=== PATIENT | female | born 1960 | race Caucasian/White ===

== ENCOUNTER → 2024-01-03 12:50 | Outpatient (CLI) | payer MEDICARE, SELFPAY ==
--- NOTE | 2024-01-03 12:55 | DI.RAD.S_ITS ---
PROCEDURE: XR CHEST 2V INDICATIONS: Cough, dyspnea, reports HX nodule TECHNIQUE: 2 views of the chest were acquired. COMPARISON: None. FINDINGS: Surgical changes and devices: None. Lungs and pleura: Lungs are clear. No pleural effusions or pneumothorax. Mediastinum: Mediastinal contours are normal. Heart size is normal. Bones and chest wall: No suspicious bony abnormalities. Soft tissues appear unremarkable. IMPRESSION: No acute cardiopulmonary abnormality is seen. Dictated by: Martine Fried M.D. on 01/03/2024 at 13:48 Approved by: Martine Fried M.D. on 01/03/2024 at 13:49
== END ==
LOC: RAD 12:52
PROVIDERS: PCP Nurse Practitioner Family; Referring Provider Physician Assistant Surgical; Visit Provider Physician Assistant Surgical
DX: R05.9 Cough, unspecified (principal)
CPT/HCPCS: 71046

== ENCOUNTER → 2024-01-31 13:53 | Outpatient (CLI) | payer MEDICARE, SELFPAY | PROVIDERS: PCP Nurse Practitioner Family; Referring Provider Nurse Practitioner Family; Visit Provider Nurse Practitioner Family | DX: Z12.11 Encounter for screening for malignant neoplasm of colon (principal) | CPT/HCPCS: 82274 ==

== ENCOUNTER → 2024-03-07 08:02 | Outpatient (CLI) | payer MEDICARE, SELFPAY ==
[2024-03-07 10:23] LABS: BUN Creatinine Ratio 19.2 (6-22); Blood Urea Nitrogen 15 mg/dL (7-17); Carbon Dioxide 26 mmol/L (22-32); Chloride 105 mmol/L (98-107); Cholesterol 147 mg/dL (140-199); Estimated Glomerular Filt Rate > 60 mL/min (>60); Glucose 119 mg/dL (80-110); HDL Cholesterol 43 mg/dL (40-60); HEMOLYSIS < 15 (0-50); LDL Cholesterol Calculated 71 mg/dL (<100); Sodium 139 mmol/L (137-145); Triglycerides 163 mg/dL (35-150)
[2024-03-07 14:31] LABS: Hemoglobin A1C% w Est Avg Glu 5.8 % (4.0-6.0)
== END ==
PROVIDERS: PCP Nurse Practitioner Family; Referring Provider Nurse Practitioner Family; Visit Provider Nurse Practitioner Family
DX: E11.9 Type 2 diabetes mellitus without complications (principal); E78.5 Hyperlipidemia, unspecified; E78.2 Mixed hyperlipidemia; I10 Essential (primary) hypertension
CPT/HCPCS: 36415; 80048; 80061; 83036

== ENCOUNTER → 2024-03-17 06:31 | Outpatient (CLI) | payer MEDICARE, SELFPAY ==
[2024-03-17 07:58] LABS: Add Manual Diff / Slide Review NO; Basophils Absolute Auto 100 /uL (0-100); Basophils Percent Auto 0.9 % (0-2); Eosinophils Absolute Auto 100 /uL (0-450); Eosinophils Percent Auto 1.4 % (2-4); Hematocrit 46.4 % (36-46); Hemoglobin 15.6 g/dL (12.0-16.0); Lymphocytes Absolute Auto 2300 /uL (1100-4500); Lymphocytes Percent Auto 24.2 % (25-40); Mean Corpuscular HGB Conc 33.6 % (30-36); Mean Corpuscular Hemoglobin 29.8 PG (26-34); Mean Corpuscular Volume 88.7 fL (80-100); Monocytes Absolute Auto 600 /uL (0-900); Monocytes Percent Auto 6.6 % (3-14); Neutrophils Absolute Auto 6300 /uL (1500-7000); Neutrophils Percent Auto 66.9 % (50-75); Platelet Count 279 X10^3/uL (150-400); Red Blood Cell Count 5.24 X10^6/uL (4.0-5.2); Red Cell Distribution Width 13.6 % (11.6-14.8); White Blood Cell Count 9.4 X10^3/uL (4.5-11.0)
[2024-03-17 09:07] LABS: TSH w/ Reflex to FT4 1.98 uIU/mL (0.47-4.68)
== END ==
PROVIDERS: PCP Nurse Practitioner Family; Referring Provider Nurse Practitioner Family; Visit Provider Nurse Practitioner Family
DX: R53.83 Other fatigue (principal)
CPT/HCPCS: 36415; 84443; 85025

== ENCOUNTER → 2024-03-20 09:41 | Outpatient (CLI) | payer MEDICARE, SELFPAY ==
--- NOTE | 2024-03-20 09:42 | DI.RAD.S_ITS ---
PROCEDURE: XR DEXA AXIAL SKELETON INDICATIONS: screening of bone density and structures COMPARISON: None. FINDINGS: Lumbar Spine: Bone mineral density 0.768 g/cm2, T score -2.5, osteoporosis. Left Hip: Bone mineral density 0.755 g/cm2, T score -1.5, osteopenia. Left Femoral Neck: Bone mineral density 0.579 g/cm2, T score -2.4, osteopenia. Right Hip: Bone mineral density 0.739 g/cm2, T score -1.7, osteopenia. Right Femoral Neck: Bone mineral density is 0.568 g/cm2, T score -2.5, osteoporosis. Fracture Risk Calculation (when applicable): 10-year fracture risk of a major osteoporotic fracture 21% and of a hip fracture 2.5%. (T score greater or equal to -1.0 to: NORMAL) (T score from -1.1 to -2.4: OSTEOPENIA) (T score less than or equal to -2.5: OSTEOPOROSIS) IMPRESSION: Osteoporosis in the lumbar spine and right femoral neck. Follow-up guidelines as follows: Osteoporosis: Consider a repeat DEXA and Vertebral Fracture Assessment (VFA) exam in 2 years or sooner if medically necessary, to reassess this patient's status. Osteopenia: Consider a repeat DEXA in 2-3 years to reassess this patient's status, or if there is a new clinical indication. Normal: Consider a repeat DEXA in 5 years or sooner, or if there is a new clinical indication. All treatment decisions require clinical judgment and consideration of individual patient factors, including patient preferences, comorbidities, previous drug use, risk factors not captured in the FRAX model (e.g., frailty, falls, vitamin D deficiency, increased bone turnover, interval significant decline in bone density ) and possible under- or over-estimation of fracture risk by FRAX. In addition, the NOF Guide recommends that FDA-approved medical therapies be considered in postmenopausal women and men age >= 50 years with a: * Hip or vertebral (clinical or morphometric) fracture * T-score of <=-2.5 at the spine or hip * Ten-year fracture probability by FRAX of >= 3% for hip fracture or >=20% for major osteoporotic fracture. People with diagnosed cases of osteoporosis or at high risk for fracture should have regular bone mineral density tests. For patients eligible for Medicare, routine testing is allowed once every 2 years. The testing frequency can be increased to one year for patients who have rapidly progressing disease, those who are receiving or discontinuing medical therapy to restore bone mass, or have additional risk factors. Dictated by: Dajuan Dunham M.D. on 03/20/2024 at 11:10 Approved by: All Hassan M.D. on 04/02/2024 at 16:51
== END ==
LOC: RAD 09:41
PROVIDERS: PCP Nurse Practitioner Family; Referring Provider Nurse Practitioner Family; Visit Provider Nurse Practitioner Family
DX: M85.89 Other specified disorders of bone density and structure, multiple sites (principal); M81.0 Age-related osteoporosis without current pathological fracture
CPT/HCPCS: 77080

== ENCOUNTER → 2024-10-07 07:43 | Outpatient (CLI) | payer MEDICARE, SELFPAY ==
[2024-10-07 08:56] LABS: Add Manual Diff / Slide Review NO; Basophils Absolute Auto 100 /uL (0-100); Basophils Percent Auto 0.9 % (0-2); Eosinophils Absolute Auto 100 /uL (0-450); Eosinophils Percent Auto 1.4 % (2-4); Hematocrit 44.7 % (36-46); Lymphocytes Absolute Auto 2200 /uL (1100-4500); Lymphocytes Percent Auto 24.6 % (25-40); Mean Corpuscular HGB Conc 33.5 % (30-36); Mean Corpuscular Volume 89.5 fL (80-100); Monocytes Absolute Auto 700 /uL (0-900); Monocytes Percent Auto 7.3 % (3-14); Neutrophils Absolute Auto 5800 /uL (1500-7000); Neutrophils Percent Auto 65.8 % (50-75); Platelet Count 259 X10^3/uL (150-400); Red Blood Cell Count 4.99 X10^6/uL (4.0-5.2); White Blood Cell Count 8.9 X10^3/uL (4.5-11.0)
[2024-10-07 09:06] LABS: Hemoglobin A1C% w Est Avg Glu 6.2 % (4.0-6.0)
[2024-10-07 09:12] LABS: Alanine Aminotransferase 36 IU/L (<35); Albumin 4.1 g/dL (3.5-5.0); Albumin Globulin Ratio 1.3 (1.0-2.8); Alkaline Phosphatase 80 U/L (38-126); Aspartate Aminotransferase 34 IU/L (14-36); BUN Creatinine Ratio 25.4 (6-22); Bilirubin Total 1.8 mg/dL (0.2-1.3); Blood Urea Nitrogen 17 mg/dL (7-17); Calcium 9.1 mg/dL (8.4-10.2); Carbon Dioxide 26 mmol/L (22-32); Chloride 103 mmol/L (98-107); Cholesterol 166 mg/dL (140-199); Estimated Glomerular Filt Rate > 60 mL/min (>60); Globulin 3.2 g/dL (1.7-4.1); Glucose 177 mg/dL (80-110); HDL Cholesterol 40 mg/dL (40-60); HEMOLYSIS < 15 (0-50); LDL Cholesterol Calculated 96 mg/dL (<100); Sodium 137 mmol/L (137-145); Total Protein 7.3 g/dL (6.3-8.2); Triglycerides 150 mg/dL (35-150)
[2024-10-07 09:15] LABS: Creatinine Urine Random 277.53 mg/dL
[2024-10-07 09:29] LABS: Vitamin D 25 Hydroxy (D3) 51.2 ng/mL (30.0-100.0)
[2024-10-07 09:50] LABS: Microalbumin Urine Random 81.7 mg/dL (0-1.6)
[2024-10-07 10:01] LABS: Vitamin B12 344 pg/mL (239-931)
== END ==
PROVIDERS: PCP Nurse Practitioner Family; Referring Provider Nurse Practitioner Family; Visit Provider Nurse Practitioner Family
DX: N92.0 Excessive and frequent menstruation with regular cycle (principal); E11.9 Type 2 diabetes mellitus without complications; I10 Essential (primary) hypertension; M81.0 Age-related osteoporosis without current pathological fracture
CPT/HCPCS: 36415; 80053; 80061; 82043; 82306; 82570; 82607; 83036; 85025

== ENCOUNTER 2024-12-21 07:16 | Day surgery (SDC) | payer MEDICARE, SELFPAY ==
[2024-12-21 07:39] VITALS: BP 161/96; PULSE 138; RESP 20; TEMP 36.2; O2SAT 98
[2024-12-21] MEDS: LACTATED RINGERS 1,000 ML 42 ML IV (07:52)
[2024-12-21 08:09] VITALS: PULSE 102
[2024-12-21] MEDS: METOCLOPRAMIDE 10 MG/2 ML INJ IV (08:17)
--- NOTE | 2024-12-21 09:01 | PM.HP.IH.1 ---
History of Present Illness History of Present Illness Date Patient Seen: 12/21/24 Time Patient Seen: 09:02 Chief complaint: Colonoscopy Narrative: Parisa is a 64-year-old woman who presents for a colonoscopy due to a positive fit test. Her last colonoscopy was greater than 10 years ago. [facility] Medical History (Updated 10/04/24 @ 15:48 by Meenakshi Cloud, [facility]) Positive FIT (fecal immunochemical test) Eczema Hip arthritis Chronic cough (~2014) Abnormal chest xray (~2015) PTSD (post-traumatic stress disorder) Anxiety Shoulder pain Osteoporosis Fractures Chronic back pain Carpal tunnel syndrome Mumps Measles Chicken pox Cataracts, bilateral Ovarian cyst Heavy menstrual period Kidney stones Thyroid nodule Breast cancer (~2011) Hyperlipidemia Hypertension GERD (gastroesophageal reflux disease) Seasonal allergies Osteoarthritis Hip pain, left Diabetes mellitus (~2005) Surgical History (Updated 01/21/24 @ 20:26 by Anisha Kirby) Anesthesia History of carpal tunnel release History of section (~1975) History of lithotripsy History of cholecystectomy (~2012) Hx of breast implants, bilateral (~2012) History of bilateral mastectomy (~2011) History of breast surgery (~2011) Family History (Updated 01/21/24 @ 20:28 by Anisha Kirby) Father Cancer History of heart disease Diabetes mellitus Hyperlipidemia Hypertension Mother Hyperlipidemia Hypertension Stroke Brother Hyperlipidemia Hypertension Sister Hyperlipidemia Hypertension Grandfather Diabetes mellitus History of heart disease Grandmother History of heart disease Social History Smoking Status: Never smoker alcohol intake: never Meds Home Medications and Allergies Home Medications Medication Instructions Recorded Confirmed Type blood sugar diagnostic (OneTouch #100 ea 12/15/23 10/25/24 Rx Verio test strips) pen needle, diabetic 32 gauge x 12/15/23 10/25/24 History (BD Ultra-Fine Yahaira Pen Needle) flash glucose scanning reader #1 ea 09/06/24 10/25/24 Rx (FreeStyle Edgar 2 [place]) flash glucose sensor (FreeStyle #1 ea 09/06/24 10/25/24 Rx Edgar 2 Sensor kit) atorvastatin 10 mg tablet 10 mg PO DAILY #90 tabs 10/04/24 12/21/24 Rx losartan 25 mg tablet 25 mg PO DAILY #90 tabs 10/04/24 12/21/24 Rx metformin 500 mg tablet,extended 500 mg PO DAILY #90 tabs 10/04/24 12/21/24 Rx release 24 hr metoprolol tartrate 25 mg tablet 25 mg PO BID #180 tabs 10/04/24 12/21/24 Rx blood-glucose sensor (FreeStyle #1 ea 10/18/24 10/25/24 Rx Edgar 2 Plus Sensor device) bupropion HCl 150 mg 24 hr tablet, 150 mg PO DAILY #90 tabs 10/25/24 12/21/24 Rx extended release sodium,potassium,mag sulfates 17.5 See Rx Instructions PO .COMPLEX 11/09/24 Rx gram-3.13 gram-1.6 gram oral soln #354 mL (Suprep Bowel Prep Kit) Novolog Mix 70-30 FlexPen U-100 See Rx Instructions SUBCUT 11/20/24 12/21/24 Rx Insulin 100 unit/mL subcutaneous .COMPLEX #24 mL pen (insulin asp prt-insulin aspart) Allergies Allergy/AdvReac Type Severity Reaction Status Date / Time clindamycin Allergy Mild Rash Verified 12/21/24 07:37 fluphenazine [From Prolixin] Allergy ITCHING Verified 12/21/24 07:37 lisinopril AdvReac Mild Cough Verified 12/21/24 07:37 Exam Vital Signs (past 8 hours): - 12/21/24 07:39 12/21/24 08:09 Temperature 97.1 F L Pulse Rate 138 H 102 H Respiratory Rate 20 Blood Pressure 161/96 H Pulse Oximetry 98 Oxygen Delivery Method Room Air Oxygen Delivery Method Room Air Const General: No acute distress Assessment & Plan Assessment and plan (1) Positive FIT (fecal immunochemical test): Status: Acute Plan Colonoscopy Time-Based Coding :: [TOTAL MINUTES] spent with patient and on the chart (including review of chart, obtaining history, exam, reviewing outside data, placing orders, documenting exam and treatment plan, and counseling patient) on [DATE]. 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
[2024-12-21 09:25] VITALS: BP 86/46; PULSE 96; RESP 24; TEMP 36.8; O2SAT 94
[2024-12-21 09:30] VITALS: BP 96/61; PULSE 97; RESP 25; O2SAT 96
--- NOTE | 2024-12-21 09:30 | PM.OP.COLON ---
Operative Date/Time/Diagnoses Date of procedure: 12/21/24 Time of procedure: 09:30 Pre-op diagnosis: Positive fit test Post-op diagnosis: same Procedure & Clinicians Study performed: Colonoscopy Same procedure as scheduled: Yes Surgeon: Adan Serrato Procedure Notes Procedure in detail: Surgeon: Adan Serrato MD Anesthesia: Any Smith CRNA Procedure: The patient was brought to the endoscopy suite, placed in left lateral decubitus position. The patient was connected to monitoring devices. A time-out was performed. Sedation was administered. Once the patient was adequately sedated, a digital rectal exam was performed and was normal. The scope was then inserted and advanced to the cecum where the appendiceal orifice was identified and photographed. The scope was then slowly withdrawn over greater than 6 minutes. The mucosa was thoroughly inspected. No polyps or other abnormalities were found. The scope was retroflexed in the rectum. The scope was straightened and removed. The patient was awakened and brought to recovery. Scope withdrawal time: 8 minutes Sedation time: 12 minutes EBL: 0 Findings: Normal colon Post-procedure Recommendations: Colonoscopy in 10 years Disposition: PACU
[2024-12-21 09:35] VITALS: BP 96/58; PULSE 113; RESP 20; O2SAT 95
[2024-12-21 09:44] VITALS: BP 93/62; PULSE 97; RESP 14; TEMP 37.2; O2SAT 95
== END 2024-12-21 09:58 | disposition home or self-care (01) ==
PROVIDERS: PCP Nurse Practitioner Family; Referring Provider Surgery; Visit Provider Surgery
PROC: 0DJD8ZZ Inspection of Lower Intestinal Tract, Via Natural or Artificial Opening Endoscopic (ICD-10-PCS; CPT 45378; principal; 2024-12-21 08:30)
DX: Z12.11 Encounter for screening for malignant neoplasm of colon (principal); R19.5 Other fecal abnormalities
CPT/HCPCS: G0121; J2704; J2765

== ENCOUNTER → 2025-01-06 07:36 | Outpatient (CLI) | payer MEDICARE, SELFPAY ==
[2025-01-06 09:39] LABS: Hemoglobin A1C% w Est Avg Glu 5.7 % (4.0-6.0)
[2025-01-06 09:57] LABS: BUN Creatinine Ratio 22.9 (6-22); Blood Urea Nitrogen 16 mg/dL (7-17); Calcium 9.2 mg/dL (8.4-10.2); Carbon Dioxide 22 mmol/L (22-32); Chloride 105 mmol/L (98-107); Estimated Glomerular Filt Rate > 60 mL/min (>60); Glucose 148 mg/dL (70-99); HEMOLYSIS < 15 (0-50); Potassium 3.8 mmol/L (3.4-5.1); Sodium 138 mmol/L (137-145)
== END ==
PROVIDERS: PCP Nurse Practitioner Family; Referring Provider Nurse Practitioner Family; Visit Provider Nurse Practitioner Family
DX: E11.9 Type 2 diabetes mellitus without complications (principal); I10 Essential (primary) hypertension
CPT/HCPCS: 80048; 83036

== ENCOUNTER → 2025-01-15 07:11 | Outpatient (CLI) | payer MEDICARE, SELFPAY ==
--- NOTE | 2025-01-15 07:12 | DI.NM.S_ITS ---
PROCEDURE: NM EXERCISE TREADMILL NON NUC COMPARISON: None INDICATIONS: Tachycardia, palpitations, chest pressure, shortness of breath FINDINGS: Rest ECG sinus rhythm 88 bpm. Alber protocol 4:57, maximum heart rate 132 bpm (86% peak predicted), peak blood pressure 168/102, 7.0 METS, JIA +18%. Exercise ECG sinus tachycardia, no ST segment changes or arrhythmia. The patient did not report exercise-induced chest discomfort. IMPRESSION: Low risk study. No evidence of exercise-induced ischemia or arrhythmia. Normal hemodynamic response. Slightly reduced exercise capacity. Dictated by: Karina Sánchez D.O. on 01/15/2025 at 16:50 Approved by: Karina Sánchez D.O. on 01/15/2025 at 16:53
--- NOTE | 2025-01-15 07:12 | DI.ECHO.S_ITS ---
[facility] : : [id number] : : [place] : : [id number] : : Phone: [phone] Echocardiogram Report + + :Name: ROLAND WISE Study Date: 01/15/2025 Height: 58 in : :[facility] ReadingLocation: Weight: 166 lb : : Gender: Female BSA: 1.7 m2 : :: 1960 Age: 64 yrs BP: 143/90 mmHg: :Reason For Study: Palpitations : :Ordering Physician: OLEGARIO, : :SHAHBAZ Performed By: Nohemy Du : :Referring: SHAHBAZ MELVIN : + + Interpretation Summary Technically difficult study due to breast augmentation and body habitus. Grossly normal left ventricle size with ejection fraction 60-65%. No significant valvular abnormality. Incidental finding of a large loculated fluid structure in lower abdomen. Procedure: A two-dimensional transthoracic echocardiogram with color flow and Doppler was performed. The study quality was technically difficult. There is no prior echocardiogram noted for this patient. The heart rate ranged between 83-88 bpm during the study. Left Ventricle: The left ventricle is grossly normal size. The ejection fraction is estimated to be 60-65%. There are no obvious focal wall motion abnormalities noted but poor endocardial definition reduces the sensitivity for the detection of such. Diastolic function could not be accurately assessed due to unobtainable data. Right Ventricle: The right ventricle grossly appears normal in size with probable normal systolic function. Atria: The left atrium grossly appears normal in size. The right atrium grossly appears normal in size. The interatrial septum is not well visualized. Mitral Valve: The mitral valve is grossly normal. There is trace mitral regurgitation. Aortic Valve: The aortic valve opens well. The aortic valve is trileaflet. There is trace aortic regurgitation. Tricuspid Valve: The tricuspid valve is not well visualized, but is grossly normal. No tricuspid regurgitation. Pulmonic Valve: The pulmonic valve is not well visualized. Great Vessels: The aortic root is normal size. The ascending aorta is normal in size. The aortic arch is normal in size. The IVC is of normal diameter and collapses greater than 50% with a sniff. This suggests a low right atrial pressure of 3 mm Hg. Pericardium/ Pleura There is no pericardial effusion. There is no pleural effusion. MMode/2D Measurements & Calculations LVIDd: 3.9 cm LVOT diam: 2.1 cm LVIDs: 2.7 cm Ao root diam: 3.0 cm FS: 30.9 % asc Aorta Diam: 3.3 cm EPSS: 0.67 cm Ao Arch Diam (Prox Trans): 2.7 cm IVSd: 0.89 cm LVPWd: 0.77 cm LV maxwell. diameter/BSA (cm/m^2): 2.3 LV sys. diameter/BSA (cm/m^2): 1.6 IVC diam: 1.3 cm RVD1 (basal): 3.3 cm Doppler Measurements & Calculations Ao V2 max: 98.4 cm/sec LVOT Max Kehinde: 62.9 cm/sec Ao V2 mean: 70.9 cm/sec LV V1 max P.6 mmHg Ao max P.9 mmHg LV V1 VTI: 16.4 cm Ao mean P.3 mmHg BERNARDO(I,D): 2.6 cm2 Ao V2 VTI: 22.5 cm BERNARDO(V,D): 2.3 cm2 sev ratio: 0.73 BERNARDO indexed to BSA (cm^2/m^2): 1.6 MV E max kehinde: 78.4 cm/sec PA V2 max: 77.8 cm/sec MV A max kehinde: 103.2 cm/sec PA V2 mean: 51.5 cm/sec MV E/A: 0.76 PA mean P.3 mmHg Med Peak E' Kehinde: 7.7 cm/sec PA pr(Accel): 32.8 mmHg E/E' med: 10.2 Lat Peak E' Kehinde: 7.0 cm/sec E/E' lat: 11.1 E/e' average: 10.7 MV dec time: 0.23 sec SV(LVOT): 58.7 ml Electronically signed by: Zenaida Narvaez on Reading Physician:01/15/2025 10:52 AM
== END ==
PROVIDERS: PCP Nurse Practitioner Family; Referring Provider Nurse Practitioner Family; Visit Provider Nurse Practitioner Family
DX: R07.89 Other chest pain (principal); R00.0 Tachycardia, unspecified; R00.2 Palpitations; R06.02 Shortness of breath
CPT/HCPCS: 93017; 93306

== ENCOUNTER → 2025-01-22 07:46 | Outpatient (CLI) | payer MEDICARE, SELFPAY | PROVIDERS: PCP Nurse Practitioner Family; Referring Provider Nurse Practitioner Family; Visit Provider Nurse Practitioner Family | DX: R00.0 Tachycardia, unspecified (principal); R00.2 Palpitations | CPT/HCPCS: 93242 ==

== ENCOUNTER → 2025-02-16 08:26 | Outpatient (CLI) | payer MEDICARE, SELFPAY ==
--- NOTE | 2025-02-16 08:27 | DI.CT.S_ITS ---
PROCEDURE: CT ABDOMEN PELVIS WO CON INDICATIONS: Fluid in abdomen TECHNIQUE: CT of the abdomen and pelvis was obtained without intravenous contrast. Coronal and sagittal reformats were performed. For radiation dose reduction, the following was used: automated exposure control, adjustment of mA and/or kV according to patient size. COMPARISON: None. FINDINGS: Image quality: Diagnostic. Lower Chest: No significant findings. ABDOMEN: As noted on the prior echocardiogram from 01/15/2025 there is a large heterogeneous attenuation cystic and solid structure in the pelvis which extends cephalad to the mid to upper abdomen measures up to approximately 16.2 cm cc by 15.4 cm transverse by 13.5 cm AP maximal dimensions suspicious for neoplasm. There is some association with the right ovary/adnexa possible ovarian neoplasm both benign and malignant causes. Gynecologic oncology consult and Follow-up is needed. Kidneys and Ureters: Abnormal appearance of the right renal pelvis with numerous calcifications, abnormally dilated renal pelvis and proximal right ureter with mild surrounding edema. Mild right hydroureter is also noted which may be related to pelvic mass. If indicated CT IVP with contrast could be performed. Largest calcification in the right renal pelvis measures up to 1.5 cm cc by 1.3 cm transverse by 1 cm AP maximal dimension. Hounsfield units approximately 1225. Left kidney, left ureter within normal limits without hydronephrosis or renal, ureteral calculus. Moderate degenerative changes lower thoracic, lumbar spine with heterogeneous low-attenuation in the L2 vertebral body anterior half may be related to hemangioma however given the other findings lytic metastasis or other lesion not excluded. Similar smaller areas of low-attenuation in the T12 and L3 vertebral bodies. If indicated MR lumbar spine without and with contrast may be useful for further evaluation. Mild nonspecific wall thickening of the stomach and gastric rugae a commonly artifact from partial nondistention although mild gastritis or other process not excluded. Liver: No CT evidence of focal hepatic lesion. Liver measures approximately 12 cm in CC dimension of the right lobe with prominent left lobe. Possible lobulated contour of the liver is nonspecific but may be an indication of cirrhotic change. Gallbladder: Status post cholecystectomy. Biliary ducts: No biliary dilation. Pancreas: No ductal dilation. Spleen: Size is within normal limits. Adrenal Glands: No adrenal nodules. Small Bowel: Normalcaliber, without significant wall thickening. Peritoneum: No abnormal intraperitoneal fluid. No free air. Ventral Wall: No significant hernia. Abdominal Nodes: No retroperitoneal or mesenteric adenopathy by size criteria. Vessels: Aorta and inferior vena cava are normal in size. PELVIS: Pelvic mass as discussed above. Nonspecific Prominence of the left ovary/adnexa also noted ill-defined measuring up to 5 cm diameter. Bladder: Partially nondistended. No gross bladder wall thickening or bladder calcification. Numerous 1-3 mm calcifications the pelvis commonly phleboliths. Pelvic Nodes: No enlarged lymph nodes. Miscellaneous: No inguinal hernias are seen. IMPRESSION: Pelvic mass suspicious for ovarian neoplasm as discussed above. Follow-up is needed. Nonspecific mild enlargement left ovary. Heterogeneous areas of low-attenuation in multiple lumbar vertebral bodies as discussed above commonly hemangiomas lytic metastases not excluded. Numerous right renal collecting system calcifications with hydronephrosis and hydroureter Follow-up is needed. Dictated by: Jon Montero M.D. on 02/19/2025 at 10:05 Approved by: Jon Montero M.D. on 02/19/2025 at 10:20
== END ==
LOC: CT 08:26
PROVIDERS: PCP Nurse Practitioner Family; Referring Provider Nurse Practitioner Family; Visit Provider Nurse Practitioner Family
DX: N83.8 Other noninflammatory disorders of ovary, fallopian tube and broad ligament (principal); N13.2 Hydronephrosis with renal and ureteral calculous obstruction; R19.00 Intra-abdominal and pelvic swelling, mass and lump, unspecified site; R18.8 Other ascites; M47.814 Spondylosis without myelopathy or radiculopathy, thoracic region; M47.816 Spondylosis without myelopathy or radiculopathy, lumbar region; Z90.49 Acquired absence of other specified parts of digestive tract
CPT/HCPCS: 74176; Q9967

== ENCOUNTER → 2025-02-27 15:14 | Outpatient (CLI) | payer MEDICARE, SELFPAY ==
[2025-02-27 15:49] LABS: Add Manual Diff / Slide Review NO; Hematocrit 43.6 % (36-46); Hemoglobin 15.3 g/dL (12.0-16.0); Lymphocytes Absolute Auto 2700 /uL (1100-4500); Mean Corpuscular HGB Conc 35.1 % (30-36); Mean Corpuscular Hemoglobin 30.9 PG (26-34); Mean Corpuscular Volume 88.1 fL (80-100); Platelet Count 266 X10^3/uL (150-400)
[2025-02-27 16:42] LABS: Carcinoembryonic Antigen 1.1 ng/mL (0.1-3.0)
[2025-03-01 11:19] LABS: Human Epididymis Prot 4 77.5 pmol/L (0.0-96.5)
== END ==
PROVIDERS: PCP Nurse Practitioner Family; Referring Provider Obstetrics & Gynecology; Visit Provider Obstetrics & Gynecology
DX: R19.00 Intra-abdominal and pelvic swelling, mass and lump, unspecified site (principal)
CPT/HCPCS: 36415; 82378; 85025; 86304; 86305

== ENCOUNTER → 2025-04-14 08:08 | Outpatient (CLI) | payer MEDICARE, SELFPAY ==
[2025-04-14 09:59] LABS: Hemoglobin A1C% w Est Avg Glu 6.4 % (4.0-6.0)
== END ==
LOC: LAB 08:09
PROVIDERS: PCP Nurse Practitioner Family; Referring Provider Nurse Practitioner Family; Visit Provider Nurse Practitioner Family
DX: E11.9 Type 2 diabetes mellitus without complications (principal); Z79.4 Long term (current) use of insulin
CPT/HCPCS: 36415; 83036

== ENCOUNTER → 2025-04-19 08:22 | Outpatient (CLI) | payer MEDICARE, SELFPAY ==
--- NOTE | 2025-04-19 08:23 | DI.US.S_ITS ---
PROCEDURE: US SOFT TISSUE ABDOMEN INDICATIONS: possible wound closure abscess TECHNIQUE: Real-time focused scanning was performed of the abdomen, with image documentation. COMPARISON: [facility], CT, CT ABDOMEN PELVIS WO CON, 02/16/2025, 9:32. FINDINGS: High-resolution body wall imaging was performed in area of current clinical concern for possible abscess formation at the lower abdomen/pelvis incision site. No abnormal fluid collection or hyperemic site is found. IMPRESSION: Normal body wall ultrasound, no suspicion for abscess formation. Dictated by: Praveen Rose M.D. on 04/19/2025 at 9:18 Approved by: Praveen Rose M.D. on 04/19/2025 at 9:19
== END ==
PROVIDERS: PCP Nurse Practitioner Family; Referring Provider Family Medicine; Visit Provider Family Medicine
DX: T81.49XA Infection following a procedure, other surgical site, initial encounter (principal)
CPT/HCPCS: 76705

== ENCOUNTER → 2025-06-20 09:10 | Outpatient (CLI) | payer MEDICARE, SELFPAY ==
[2025-06-20 10:15] LABS: Hemoglobin A1C% w Est Avg Glu 6.9 % (4.0-6.0)
== END ==
PROVIDERS: PCP Nurse Practitioner Family; Referring Provider Family Medicine; Visit Provider Family Medicine
DX: E11.9 Type 2 diabetes mellitus without complications (principal); Z79.4 Long term (current) use of insulin
CPT/HCPCS: 36415; 83036